=== PATIENT | female | born 1980 | race Asian ===

== ENCOUNTER → 2024-11-27 10:14 | Outpatient (CLI) | payer OTHER, SELFPAY ==
--- NOTE | 2024-11-27 10:17 | DI.MG.S_ITS ---
MM diagnostic mammo BI, US breast RT limited: 11/27/2024 BI-RADS: 1 CLINICAL: 44-year old female for bilateral diagnostic mammogram and right diagnostic breast ultrasound. Tyrer-Cuzick lifetime risk of 18.3%. No personal or first- degree family history of breast cancer. Current reported family history of breast cancer: maternal grandmother. The patient reported a pea-sized palpable abnormality (3 months) in the right breast that has since resolved. A skin marker was placed at the site of the prior palpable abnormality on today's exam. PRIOR EXAMS: None. This is a baseline examination. MAMMOGRAPHY TECHNIQUE: 2D and 3D (tomosynthesis) digital mammographic views obtained, with additional images as needed for full coverage. Current study was also evaluated with a Computer Aided Detection (CAD) system. ULTRASOUND TECHNIQUE: Real-time combs scale imaging of the area of clinical interest was performed with image documentation. TARGETED Right Breast Ultrasound: Real-time ultrasound exam was performed focused to area of clinical and/or imaging concern. DENSITY D. The breasts are extremely dense, which lowers the sensitivity of mammography. MAMMOGRAPHY FINDINGS Right: Outer Central, Middle depth: A skin marker was placed in the area of concern, and no mammographic abnormalities are identified or to account for concern by the patient of a palpable lump. No suspicious mass, asymmetry, microcalcification, or other abnormality seen. Left: No suspicious mass, asymmetry, microcalcification, or other abnormality seen. ULTRASOUND FINDINGS Right: Lower Outer at 8:00, 4 cm from nipple: Underlying the surface marker, there is no sonographic abnormality to account for concern by the patient of a palpable lump. IMPRESSION: * No evidence of malignancy. RECOMMENDATIONS Right * Clinical follow-up is recommended, and further management of palpable abnormalities or other focal signs or symptoms should be based on the results of clinical evaluation. If palpable abnormality or other concerning symptom persists or progresses, further clinical evaluation should be considered. Bilateral * Annual screening mammography. COMMENTS: Findings and recommendations were conveyed to the patient during today's evaluation. OVERALL ASSESSMENT CATEGORY BI-RADS-1: Negative. The [employer] recommends annual screening mammography beginning at age 40 for women with average risk of breast cancer. ELECTRONICALLY SIGNED: Brianne Ramirez M.D. on 11/27/2024 at 11:36:08 AM PT Interpreting Station ID: [id number]
--- NOTE | 2024-11-27 10:17 | DI.US.S_ITS ---
PROCEDURE: US BREAST RT LIMITED COMPARISON: None. INDICATIONS: RT BREAST MASS FINDINGS: IMPRESSION: Dictated by: Brianne Ramirez M.D. on 11/27/2024 at 10:58 Approved by: Brianne Ramirez M.D. on 11/27/2024 at 11:05
--- NOTE | 2024-11-27 10:54 | DI.US.S_ITS ---
Patient Name: SAW SALOMON date: 1980 Sex: F Attending Physician: Bebeto Indications: Date: 11/27/2024 11:36 At the request of: IGNACIO MAHONEY Procedure: US breast RT limited MM diagnostic mammo BI, US breast RT limited: 11/27/2024 BI-RADS: 1 CLINICAL: 44-year old female for bilateral diagnostic mammogram and right diagnostic breast ultrasound. Tyrer-Cuzick lifetime risk of 18.3%. No personal or first-degree family history of breast cancer. Current reported family history of breast cancer: maternal grandmother. The patient reported a pea-sized palpable abnormality (3 months) in the right breast that has since resolved. A skin marker was placed at the site of the prior palpable abnormality on today's exam. PRIOR EXAMS: None. This is a baseline examination. MAMMOGRAPHY TECHNIQUE: 2D and 3D (tomosynthesis) digital mammographic views obtained, with additional images as needed for full coverage. Current study was also evaluated with a Computer Aided Detection (CAD) system. ULTRASOUND TECHNIQUE: Real-time combs scale imaging of the area of clinical interest was performed with image documentation. TARGETED Right Breast Ultrasound: Real-time ultrasound exam was performed focused to area of clinical and/or imaging concern. DENSITY D. The breasts are extremely dense, which lowers the sensitivity of mammography. MAMMOGRAPHY FINDINGS Right: Outer Central, Middle depth: A skin marker was placed in the area of concern, and no mammographic abnormalities are identified or to account for concern by the patient of a palpable lump. No suspicious mass, asymmetry, microcalcification, or other abnormality seen. Left: No suspicious mass, asymmetry, microcalcification, or other abnormality seen. Continued Report - Page 2 of 2 Patient Name: SAW SALOMON date: 1980 Sex: F Attending Physician: Bebeto Indications: Date: 11/27/2024 11:36 At the request of: IGNACIO MAHONEY Procedure: US breast RT limited ULTRASOUND FINDINGS Right: Lower Outer at 8:00, 4 cm from nipple: Underlying the surface marker, there is no sonographic abnormality to account for concern by the patient of a palpable lump. IMPRESSION: * No evidence of malignancy. RECOMMENDATIONS Right * Clinical follow-up is recommended, and further management of palpable abnormalities or other focal signs or symptoms should be based on the results of clinical evaluation. If palpable abnormality or other concerning symptom persists or progresses, further clinical evaluation should be considered. Bilateral * Annual screening mammography. COMMENTS: Findings and recommendations were conveyed to the patient during today's evaluation. OVERALL ASSESSMENT CATEGORY BI-RADS-1: Negative. The [employer] recommends annual screening mammography beginning at age 40 for women with average risk of breast cancer. ELECTRONICALLY SIGNED: Brianne Ramirez M.D. on 11/27/2024 at 11:36:08 AM PT Interpreting Station ID: [id number]
== END ==
LOC: MAMMO 10:16
PROVIDERS: Family Provider Family Medicine; Referring Provider Family Medicine; Visit Provider Family Medicine
DX: N63.0 Unspecified lump in unspecified breast (principal)
CPT/HCPCS: 76642; 77066; G0279

== ENCOUNTER → 2025-02-26 10:39 | Outpatient (CLI) | payer OTHER, SELFPAY ==
--- NOTE | 2025-02-26 10:40 | DI.MRI.S_ITS ---
MR breast BI wo/w con: 02/26/2025. BI-RADS: 1
== END ==
LOC: MRI 10:40
PROVIDERS: Family Provider Family Medicine; Referring Provider Physician Assistant; Visit Provider Physician Assistant
DX: R92.30 Dense breasts, unspecified (principal); Z80.3 Family history of malignant neoplasm of breast
CPT/HCPCS: 77049; A9579